=== PATIENT | female | born 1945 | race Caucasian/White ===

== ENCOUNTER → 2018-04-03 | Day surgery (SDC) | payer MEDICARE, BC ==
[~2018-04-03] MED LIST: ATORVASTATIN CA40 MG PO; BROMIDE INH; BROVANA15 MCG/2 M INH; DILTIAZEM 24HR300 M3 PO; LASIX 40 MG TAB40 M2 PO; LEXAPRO20 MG PO; OMEPRAZOLE 20 M20 M1 PO; PERCOCET PO; POTASSIUM20 PO; PROAIR HFA8.5 GM INH; SINGULAIR 10 MG10 M1 PO; SYNTHROID75 MCG PO; TOPROL XL25 MG PO; TRICOR145 MG PO; VITAMIN D3400 UNIT PO; XARELTO20 MG PO
[2018-04-03 10:49] LABS: HEMATOCRIT 41.5 % (37.0-47.0); HEMOGLOBIN 13.5 gm/dL (12.0-15.0); MCH 26.4 pg (26.0-34.0); MCHC 32.5 g/dL (28.0-37.0); MCV 81.4 fL (80.0-100.0); MPV 8.8 fl. (7.2-11.1); RBC 5.1 mil/uL (4.20-5.00); RDW-CV 17.6 % (10.5-14.5)
[2018-04-03 10:57] LABS: CALCIUM 8.9 mg/dL (8.5-10.1); CREATININE 1.1 mg/dL (0.6-1.3); POTASSIUM 3.9 mmol/L (3.5-5.1)
[2018-04-03 11:02] LABS: ALBUMIN 3.1 g/dL (3.4-5.0); TOTAL PROTEIN 6.7 g/dL (6.4-8.2)
--- NOTE | 2018-04-03 17:55 | EKG ---
[place] [address] ELECTROCARDIOGRAM REPORT Name: LASHONDANILAM Tennille Room: [facility]#: [id number] Admission: 04/03/18 Attend Phys: Ryan Jones II Discharge: Date of : 45 Report #: [id number] THIS REPORT FOR: //name// 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: : 1945 Requested By: Ryan Jones Order Number: [id number] Judy MD: Terrell Montana Measurements Intervals [place] Rate: 70 P: NC: QRS: 50 QRSD: 101 T: 130 QT: 510 QTc: 551 Interpretive Statements Atrial fibrillation Low voltage, extremity leads Nonspecific repol abnormality, diffuse leads Prolonged QT interval No previous ECG available for comparison Electronically Signed On 04-03-2018 17:54:53 CDT by Terrell Montana [email or web address] <ELECTRONICALLY SIGNED> By: Terrell Montana MD, [facility] 04/03/18 1754 1032 31 Terrell Montana MD, FACC /EPI
--- NOTE | 2018-04-17 08:37 | OP ---
[address] [address] OPERATIVE REPORT Name: NILAM GALLEGO Room: [facility]#: [id number] Admission: 04/03/18 Attend Phys: Ryan Jones II Discharge: Date of : 45 Report #: [id number] THIS REPORT FOR: //name// CC: Ryan Ochoa DATE OF SERVICE: 04/03/2018 PREOPERATIVE DIAGNOSIS: Right shoulder rotator cuff tear. POSTOPERATIVE DIAGNOSES: 1. Right shoulder rotator cuff tear. 2. Lateral clavicle osteoarthritis. 3. Bone and cartilage debris with labral tears, glenohumeral joint. 4. Subacromial impingement. PROCEDURES PERFORMED: 1. Right shoulder arthroscopic surgery with rotator cuff repair. 2. Arthroscopic lateral clavicle excision. 3. Arthroscopic extensive debridement of glenohumeral joint and labral tears. 4. Subacromial decompression. SURGEON: Ryan Jones II, DO RN LACTATION CONSULTANT: MATEO Aguirre. ANESTHESIA: Per operative record. ESTIMATED BLOOD LOSS: Minimal. ANTIBIOTICS: Per operative record. COMPLICATIONS: None. CONDITION: The patient is stable to recovery room. DESCRIPTION OF PROCEDURE: The patient was taken to the operative suite and placed supine on the operating table, given appropriate anesthesia. The patient's affected shoulder was sterilely prepped and draped in a modified beach chair position and all bony prominences well padded. Surgery began by posterior portal incision. The arthroscope was advanced in the joint. There was only mild fraying of the biceps tendon without significant tearing. The labrum was torn along the inferior and superior aspect of the glenoid. There was also found to be bone and cartilage debris within the glenohumeral joint. This was debrided utilizing a shaver throughout the superior, inferior as well as anterior portions and posterior portions of the [place] [address] OPERATIVE REPORT Name: NILAM GALLEGO Room: [facility]#: [id number] Admission: 04/03/18 Attend Phys: Ryan Jones II Discharge: Date of : 45 Report #: [id number] debridement of bone and cartilage debris and debridement of the labrum. An extensive debridement was performed. The arthroscope was then advanced to the subacromial space. A subacromial decompression with partial anterior acromioplasty was performed. The distal centimeter of lateral clavicle was also found to have a significant osteoarthritis and was debrided and removed utilizing a shaver to the distal centimeter of clavicle. The rotator cuff was evaluated 11 mm tear to the lateral aspect of the supraspinatus at its insertion on the humerus. This was debrided along its free edge with a shaver down to fresh bone and fresh tissue. The bone bed was then repaired along the lateral humerus down to bleeding bone. Two suture tapes were then placed through the rotator cuff. These were then placed in excellent configuration and anchored to the lateral humerus with 2 anchors. These were probed and found to be intact with excellent repair of the rotator cuff and full range of motion of the shoulder without evidence of re-tear. Final images were taken. The shoulder was then drained of arthroscopic fluid, closed with a 4-0 nylon in simple fashion. Dermabond and sterile dressing and sling were applied. The patient transported to recovery room in a stable condition. Counts were correct throughout the procedure. <ELECTRONICALLY SIGNED> By: Ryan Jones II, DO 04/17/18 0837 0722 [id number] Jones II, DO /nt
== END | disposition home or self-care (01) ==
LOC: M.SUR 07:04
PROVIDERS: Orthopaedic Surgery
DX: S46.011A Strain of muscle(s) and tendon(s) of the rotator cuff of right shoulder, initial encounter (principal); M19.011 Primary osteoarthritis, right shoulder; S43.491A Other sprain of right shoulder joint, initial encounter; M75.41 Impingement syndrome of right shoulder; I11.0 Hypertensive heart disease with heart failure; I50.9 Heart failure, unspecified; E78.00 Pure hypercholesterolemia, unspecified; M81.0 Age-related osteoporosis without current pathological fracture; G47.33 Obstructive sleep apnea (adult) (pediatric); E07.9 Disorder of thyroid, unspecified; M19.90 Unspecified osteoarthritis, unspecified site; I48.91 Unspecified atrial fibrillation; J44.9 Chronic obstructive pulmonary disease, unspecified; F32.9 Major depressive disorder, single episode, unspecified; Z86.73 Personal history of transient ischemic attack (TIA), and cerebral infarction without residual deficits; Z87.01 Personal history of pneumonia (recurrent); Z82.49 Family history of ischemic heart disease and other diseases of the circulatory system; Z80.9 Family history of malignant neoplasm, unspecified; Z88.8 Allergy status to other drugs, medicaments and biological substances; Z79.899 Other long term (current) drug therapy; Z98.890 Other specified postprocedural states; Z79.01 Long term (current) use of anticoagulants; X58.XXXA Exposure to other specified factors, initial encounter; Y93.89 Activity, other specified; Y92.89 Other specified places as the place of occurrence of the external cause; Y99.8 Other external cause status